=== PATIENT | female | born 1955 | race Caucasian/White ===

== ENCOUNTER → 2017-11-28 | Outpatient (CLI) | payer BC | END | disposition home or self-care (01) | LOC: PCVCIMAG 10:59 | DX: I07.1 Rheumatic tricuspid insufficiency (principal); I42.2 Other hypertrophic cardiomyopathy; R94.31 Abnormal electrocardiogram [ECG] [EKG] | CPT/HCPCS: 93306; 93325; 93351 ==

== ENCOUNTER → 2017-11-29 | Outpatient (CLI) | payer BC ==
[~2017-11-29] MED LIST: REGADENOSON 0.4 MG/5 ML DISP.SYRIN. IV
== END | disposition home or self-care (01) ==
LOC: PCVCIMAG 09:35
DX: I42.9 Cardiomyopathy, unspecified (principal); R94.31 Abnormal electrocardiogram [ECG] [EKG]; E78.5 Hyperlipidemia, unspecified
CPT/HCPCS: 78452; 93017; A9500; J2785

== ENCOUNTER → 2018-04-16 | Outpatient (CLI) | payer MEDICARE, OTHER | END | disposition home or self-care (01) | LOC: PCVCCLINIC 15:01 | DX: I42.2 Other hypertrophic cardiomyopathy (principal); R60.9 Edema, unspecified; E78.00 Pure hypercholesterolemia, unspecified; R01.1 Cardiac murmur, unspecified; Z79.82 Long term (current) use of aspirin | CPT/HCPCS: 93005; G0463 ==

== ENCOUNTER → 2018-04-19 | Outpatient (CLI) | payer MEDICARE, OTHER | END | disposition home or self-care (01) | LOC: PCVCIMAG 14:57 | DX: R60.0 Localized edema (principal); M79.89 Other specified soft tissue disorders | CPT/HCPCS: 93970 ==

== ENCOUNTER → 2018-10-17 | Outpatient (CLI) | payer MEDICARE, OTHER ==
--- NOTE | 2018-10-17 14:16 | PCVCIMAG ---
APPROVED REPORT Study performed: 10/17/2018 12:47:21 EXAM: Comprehensive 2D, Doppler, and color-flow Echocardiogram Patient Location: Echo lab Status: routine BSA: 1.87 HR: 61 bpmBP: 140/90 mmHg Rhythm: NSR Other Information Study Quality: Good Risk Factors: Cardiac Risk Factors: Hyperlipidemia, HTN Indications Murmur Hypertension/HDD Hypertrophic Cardiomyopathy. Apical Hypertrophy 2D Dimensions IVSd: 18.55 (7-11mm)LVOT Diam: 21.72 (18-24mm) LVDd: 41.22 mm PWd: 14.47 (7-11mm)Ascending Ao: 36.30 (22-36mm) LVDs: 30.09 (25-40mm) Left Atrium: 43.14 (27-40mm) Aortic Root: 29.89 mm LV Single Plane 4CH: 60.49 % LV Single Plane 2CH: 39.70 % Biplane EF: 50.9 % Volumes Left Atrial Volume (Systole) Single Plane 4CH: 53.57 mLSingle Plane 2CH: 60.51 mL LA ESV Index: 31.00 mL/m2 Aortic Valve AoV Peak Gary.: 1.67 m/s AO Peak Gr.: 11.12 mmHg Mitral Valve E/A Ratio: 1.4 MV Decel. Time: 197.38 ms MV E Max Gary.: 0.92 m/s MV A Gary.: 0.67 m/s IVRT: 134.95 ms Pulmonary Vein P Vein S: 0.47 m/sP Vein A: 0.31 m/s P Vein D: 0.40 m/sP Vein A Dur.: 72.7 msec P Vein S/D Ratio: 1.17 Tricuspid Valve TR Peak Gary.: 3.01 m/s TR Peak Gr.: 36.20 mmHg Left Ventricle The left ventricle is normal size. There is normal LV segmental wall motion. Moderate left ventricular hypertrophy. Severe apical hypertrophy. Cavity obliteration due to severe hypertrophy. [place] peak velcocity is 4.16m/s and a gradient of 71.39mmHg. Left ventricular systolic function is normal. The left ventricular ejection fraction is within the normal range. LVEF is 60-65%. Grade I - abnormal relaxation pattern. Right Ventricle The right ventricle is normal size. The right ventricular systolic function is normal. [place] The left atrium size is normal. The right atrium size is normal. Aortic Valve The aortic valve is normal in structure. No aortic regurgitation is present. There is no aortic valvular stenosis. Mitral Valve Mild mitral annular calcification. Trace to mild mitral regurgitation. No evidence of mitral valve stenosis. Tricuspid Valve The tricuspid valve is normal in structure. Trace tricuspid regurgitation. Pulmonary artery pressure is 43mmHg. Pulmonic Valve The pulmonary valve is normal in structure. There is no pulmonic valvular regurgitation. Great Vessels The aortic root is normal in size. IVC is normal in size and collapses >50% with inspiration. Pericardium Trace pericardial effusion. <Conclusion> The left ventricle is normal size. Moderate left ventricular hypertrophy. Severe apical hypertrophy. Cavity obliteration due to severe hypertrophy. [place] peak velcocity is 4.16m/s and a gradient of 71.39mmHg. LVEF is 60-65%. Grade I - abnormal relaxation pattern. The right ventricle is normal size. The left atrium size is normal. The aortic valve is normal in structure. Trace to mild mitral regurgitation. Trace tricuspid regurgitation. Pulmonary artery pressure is 43mmHg. The aortic root is normal in size. Trace pericardial effusion.
== END | disposition home or self-care (01) ==
LOC: PCVCIMAG 12:47
PROVIDERS: ATTEND Internal Medicine Cardiovascular Disease
DX: I42.2 Other hypertrophic cardiomyopathy (principal); E78.00 Pure hypercholesterolemia, unspecified; R01.1 Cardiac murmur, unspecified; I10 Essential (primary) hypertension; Z79.82 Long term (current) use of aspirin
CPT/HCPCS: 93005; 93306; G0463

== ENCOUNTER → 2018-11-01 | Outpatient (CLI) | payer MEDICARE, OTHER ==
--- NOTE | 2018-11-01 17:34 | PCVCIMAG ---
APPROVED REPORT Patient Location: Echo lab Room #: Stress Nurse: Danitza Shin RN Treadmill Stress Test Indications- Non-obstructive Hypertrophic cardiomyopathy, abn ekg, assess for arrhythmias The patient exercised according to the FLIP protocol for 8:00 mins; achieving a work level of 10.1 METS. The resting heart rate of 55 bpm kaia to a maximum heart rate of 164 bpm. This value represent 105% of the maximal, age-predicted heart rate. The resting blood pressure of 138/84 mmHg, kaia to a maximum blood pressure of 220/92 mmHg. The exercise test was stopped due to fatigue and dyspnea. Conclusion #1 is exercise 8 minutes on a Flip protocol no reproduction of chest pain or angina was elicited #2 oculi abnormal EKG at baseline can consistent with LVH hypertrophic state T-wave inversions diffusely noted no changes are noted no ischemic changes. #3 fair exercise tolerance at appropriate hemodynamic response #4 no significant ectopy was induced. Impression: Negative treadmill stress test for any pro-arrhythmia dysrhythmias exhibiting fair exercise tolerance with abnormal EKG at baseline.
== END | disposition home or self-care (01) ==
LOC: PCVCIMAG 10:53
PROVIDERS: ATTEND Internal Medicine Cardiovascular Disease
DX: R94.31 Abnormal electrocardiogram [ECG] [EKG] (principal); I42.2 Other hypertrophic cardiomyopathy
CPT/HCPCS: 93017